=== PATIENT | female | born 1975 | race Two or more races ===

== ENCOUNTER 2020-07-11 08:28 | Outpatient (CLI) | payer BC ==
[~2020-07-11 08:28] MED LIST: NONE PER PT
== END 2020-07-11 23:59 | disposition home or self-care (01) ==
LOC: RAD 08:28
PROVIDERS: ATTEND Family Medicine
DX: D25.1 Intramural leiomyoma of uterus (principal); N85.4 Malposition of uterus; N83.201 Unspecified ovarian cyst, right side; N93.9 Abnormal uterine and vaginal bleeding, unspecified
CPT/HCPCS: 76830